=== PATIENT | male | born 1975 | race Caucasian/White ===

== ENCOUNTER 2017-11-21 12:36 | Emergency (ER) | payer MEDICARE, MEDICAID ==
[2013-10-15 01:55] VITALS: BMI 32.2
[~2017-11-21 12:36] MED LIST: GLUCOPHAGE1000 MG PO; ROXICODONE5 MG PO; VALIUM5 MG PO
[2017-11-21 13:07] LABS: BASOPHILS 0.8 % (0-2); EOSINOPHILS 3.6 % (0-7); HEMATOCRIT 46.7 % (42.0-54.0); HEMOGLOBIN 16.4 g/dL (13.5-17.5); IMMATURE GRANULOCYTES 0.3 % (0-5); MCH 29.4 pg (26.0-34.0); MCHC 35.1 g/dL (31.0-37.0); MCV 83.8 fL (80.0-100.0); MEAN PLATELET VOLUME 10.6 fL (7.4-10.4); MONOCYTES 9.7 % (2-11); NEUTROPHILS 57.6 % (40-80); PLATELET COUNT 245 10x3/uL (130-400); RBC 5.57 10x6/uL (4.20-6.10); WBC 11.5 10x3/uL (4.8-10.8)
[2017-11-21 13:08] LABS: APPEARANCE CLEAR (CLEAR); BILIRUBIN NEGATIVE (NEGATIVE); COLOR YELLOW (YELLOW); GLUCOSE NEGATIVE (NEGATIVE); KETONE NEGATIVE (NEGATIVE); NITRITE NEGATIVE (NEGATIVE); PROTEIN NEGATIVE (NEGATIVE); SPECIFIC GRAVITY 1.005 (1.005-1.020); UROBILINOGEN NORMAL (NORMAL)
[2017-11-21 13:19] LABS: ALBUMIN 3.9 g/dL (3.4-5.0); ALKALINE PHOSPHATASE 75 U/L (46-116); ALT (SGPT) 60 U/L (10-68); AMYLASE - SERUM 60 U/L (25-115); BILIRUBIN - TOTAL 0.46 mg/dL (0.2-1.3); CALC OSMOLALITY 282 mosm/kg (275-300); CALCIUM 9.2 mg/dL (8.5-10.1); CARBON DIOXIDE 25.8 mmol/L (21.0-32.0); CHLORIDE - SERUM 105 mmol/L (98-107); CREATININE - SERUM 0.9 mg/dL (0.6-1.3); GLUCOSE 130 mg/dL (74-106); LIPASE 275 U/L (73-393); POTASSIUM - SERUM 4.3 mmol/L (3.5-5.1); PROTEIN - SERUM 7.9 g/dL (6.4-8.2); SODIUM 141 mmol/L (136-145); UREA NITROGEN 12 mg/dL (7-18); eGFR NON AFRICAN AMERICAN > 90 mL/min (90-120)
== END 2017-11-21 15:30 | disposition home or self-care (01) ==
LOC: D.ER 12:36
PROVIDERS: Family Medicine
DX: R10.13 Epigastric pain (principal); K21.9 Gastro-esophageal reflux disease without esophagitis; E11.9 Type 2 diabetes mellitus without complications

== ENCOUNTER → 2018-07-27 10:15 | Outpatient (CLI) | payer MEDICARE, MEDICAID ==
[2013-10-15 01:55] VITALS: BMI 32.2
== END | disposition home or self-care (01) ==
LOC: D.MRI 10:15
DX: M54.5 Low back pain (principal); M54.17 Radiculopathy, lumbosacral region; M47.897 Other spondylosis, lumbosacral region; M96.1 Postlaminectomy syndrome, not elsewhere classified; Z79.899 Other long term (current) drug therapy; Z79.891 Long term (current) use of opiate analgesic

== ENCOUNTER 2018-12-02 15:04 | Emergency (ER) | payer MEDICARE, MEDICAID ==
[~2018-12-02] VITALS: Ht 175.3 cm; Wt 100.0 kg
[2018-12-02 15:12] VITALS: Ht 175.3 cm; Wt 100.0 kg
[2018-12-02] MEDS ORDERED: KLONOPIN1 MG PO (15:16)
[2018-12-02] MEDS ORDERED: HYDROCODON-ACE1 EA10 PO (15:16)
[2018-12-02] MEDS ORDERED: LIPITOR40 MG PO (15:17)
[2018-12-02 15:46] LABS: APPEARANCE CLEAR (CLEAR); BILIRUBIN NEGATIVE (NEGATIVE); COLOR YELLOW (YELLOW); GLUCOSE NEGATIVE (NEGATIVE); KETONE NEGATIVE (NEGATIVE); NITRITE NEGATIVE (NEGATIVE); PROTEIN TRACE mg/dL (NEGATIVE); SPECIFIC GRAVITY 1.015 (1.005-1.020); UROBILINOGEN NORMAL (NORMAL)
[2018-12-02 15:53] LABS: BASOPHILS 0.5 % (0-2); HEMOGLOBIN 16.5 g/dL (13.5-17.5); IMMATURE GRANULOCYTES 0.3 % (0-5); LYMPHOCYTES 20.4 % (15-50); MCH 30.2 pg (26.0-34.0); MCHC 35.9 g/dL (31.0-37.0); MCV 84.1 fL (80.0-100.0); MEAN PLATELET VOLUME 10.8 fL (7.4-10.4); MONOCYTES 9.2 % (2-11); NEUTROPHILS 68.6 % (40-80); PLATELET COUNT 244 10x3/uL (130-400); RBC 5.47 10x6/uL (4.20-6.10); RDW 13.1 % (11.5-14.5); WBC 15.6 10x3/uL (4.8-10.8)
[2018-12-02 16:03] LABS: ALBUMIN 3.8 g/dL (3.4-5.0); ALKALINE PHOSPHATASE 76 U/L (46-116); ALT (SGPT) 76 U/L (10-68); AMYLASE - SERUM 40 U/L (25-115); BILIRUBIN - TOTAL 0.34 mg/dL (0.2-1.3); CALC OSMOLALITY 274 mosm/kg (275-300); CALCIUM 9.1 mg/dL (8.5-10.1); CARBON DIOXIDE 23.1 mmol/L (21.0-32.0); CHLORIDE - SERUM 102 mmol/L (98-107); GLUCOSE 115 mg/dL (74-106); LIPASE 228 U/L (73-393); POTASSIUM - SERUM 3.8 mmol/L (3.5-5.1); SODIUM 137 mmol/L (136-145); UREA NITROGEN 12 mg/dL (7-18); eGFR NON AFRICAN AMERICAN 87 mL/min (90-120)
[2018-12-02 17:00] VITALS: BP 128/79
== END 2018-12-02 17:30 | disposition left against medical advice (07) ==
LOC: D.ER 15:04
PROVIDERS: Emergency Medicine
DX: R10.13 Epigastric pain (principal); E11.9 Type 2 diabetes mellitus without complications; K21.9 Gastro-esophageal reflux disease without esophagitis

== ENCOUNTER → 2019-04-18 08:11 | Outpatient (CLI) | payer MEDICARE, MEDICAID ==
[2018-12-02 15:12] VITALS: BMI 32.5
[~2019-04-18 08:11] MED LIST changes: +HYDROCODON-ACE1 EA10 PO; +KLONOPIN1 MG PO; +LIPITOR40 MG PO
== END | disposition home or self-care (01) ==
LOC: D.CT 08:11
PROVIDERS: ATTEND Orthopaedic Surgery
DX: M25.551 Pain in right hip (principal)

== ENCOUNTER 2020-01-22 00:17 | Observation (INO) | payer MEDICARE, MEDICAID ==
[~2020-01-22] VITALS: Ht 175.3 cm; Wt 98.2 kg
[2020-01-22 01:13] LABS: APTT 25.8 SECONDS (22.8-39.4); CALC OSMOLALITY 275 mosm/kg (275-300); CALCIUM 8.9 mg/dL (8.5-10.1); CHLORIDE - SERUM 100 mmol/L (98-107); INR 0.93 (0.85-1.17); POTASSIUM - SERUM 3.3 mmol/L (3.5-5.1); PROTIME 12.4 SECONDS (11.6-15.0); SODIUM 135 mmol/L (136-145); UREA NITROGEN 11 mg/dL (7-18); eGFR NON AFRICAN AMERICAN 87 mL/min (90-120)
[2020-01-22 01:15] LABS: GLUCOSE 223 mg/dL (74-106)
[2020-01-22 01:22] LABS: BASOPHILS 0.4 % (0-2); EOSINOPHILS 1.4 % (0-7); HEMATOCRIT 46.4 % (42.0-54.0); HEMOGLOBIN 16.1 g/dL (13.5-17.5); IMMATURE GRANULOCYTES 0.6 % (0-5); LYMPHOCYTES 23.6 % (15-50); MCH 29.8 pg (26.0-34.0); MCHC 34.7 g/dL (31.0-37.0); MCV 85.8 fL (80.0-100.0); MEAN PLATELET VOLUME 10.6 fL (7.4-10.4); MONOCYTES 7.3 % (2-11); NEUTROPHILS 66.7 % (40-80); PLATELET COUNT 226 10x3/uL (130-400); RBC 5.41 10x6/uL (4.20-6.10); RDW 12.9 % (11.5-14.5); WBC 16.2 10x3/uL (4.8-10.8)
[2020-01-22 01:28] LABS: ALBUMIN 3.5 g/dL (3.4-5.0); ALKALINE PHOSPHATASE 63 U/L (30-120); ALT (SGPT) 75 U/L (10-68); BILIRUBIN - TOTAL 0.24 mg/dL (0.2-1.3); CKMB 0.2 U/L (0.0-3.6); CREATINE KINASE 33 UL (21-232); MAGNESIUM - SERUM 1.7 mg/dL (1.8-2.4); PROTEIN - SERUM 7.1 g/dL (6.4-8.2); TROPONIN-I < 0.017 ng/mL (0.000-0.060)
--- NOTE | 2020-01-22 01:51 | NUR ---
PT STATES CP 0/10 AFTER FIRST SL NITRO
[2020-01-22 01:58] VITALS: BP 132/79
[2020-01-22] MEDS ORDERED: JANUVIA50 MG PO (02:59)
[2020-01-22] MEDS ORDERED: VITAMIN D1000 UNIT PO (03:00)
[2020-01-22] MEDS ORDERED: OMEPRAZOLE40 MG PO (03:00)
[2020-01-22] MEDS ORDERED: NAPROSYN500 MG PO (03:01)
[2020-01-22 04:16] VITALS: Ht 175.3 cm; Wt 98.2 kg
[2020-01-22 08:19] LABS: CKMB 0.2 U/L (0.0-3.6); CREATINE KINASE 32 UL (21-232); MAGNESIUM - SERUM 1.9 mg/dL (1.8-2.4); TROPONIN-I < 0.017 ng/mL (0.000-0.060)
[2020-01-22 09:25] VITALS: BP 105/54
[2020-01-22 09:25] LABS: BASOPHILS 0.5 % (0-2); EOSINOPHILS 2.1 % (0-7); HEMATOCRIT 46.3 % (42.0-54.0); IMMATURE GRANULOCYTES 0.8 % (0-5); MCH 29.7 pg (26.0-34.0); MCHC 34.6 g/dL (31.0-37.0); MCV 86.1 fL (80.0-100.0); MEAN PLATELET VOLUME 10.8 fL (7.4-10.4); MONOCYTES 8.1 % (2-11); NEUTROPHILS 57.5 % (40-80); PLATELET COUNT 245 10x3/uL (130-400); RBC 5.38 10x6/uL (4.20-6.10); RDW 12.9 % (11.5-14.5)
[2020-01-22 09:30] LABS: ALT (SGPT) 81 U/L (10-68); CALC OSMOLALITY 281 mosm/kg (275-300); CALCIUM 8.8 mg/dL (8.5-10.1); CHLORIDE - SERUM 104 mmol/L (98-107); CHOL - HDL RATIO 7.9 ratio (2.3-4.9); CHOLESTEROL, TOTAL 213 mg/dL (0-200); CREATININE - SERUM 0.8 mg/dL (0.6-1.3); HDL CHOLESTEROL 27 mg/dL (32-96); LDL CHOLESTEROL 120 mg/dL (0-100); LDL-HDL RATIO 4.4 ratio (1.5-3.5); POTASSIUM - SERUM 3.6 mmol/L (3.5-5.1); SODIUM 139 mmol/L (136-145); TRIGLYCERIDE 332 mg/dL (30-200); UREA NITROGEN 12 mg/dL (7-18); eGFR NON AFRICAN AMERICAN > 90 mL/min (90-120)
[2020-01-22 09:31] LABS: GLUCOSE 167 mg/dL (74-106)
--- NOTE | 2020-01-22 11:39 | NUR ---
REFUSES HC. DR. CRONIN AND VALORIE SHELTON NOTIFIED.
[2020-01-22 13:15] VITALS: BP 119/74
--- NOTE | 2020-01-22 14:26 | NUR ---
IV AND TELEMETRY DCD. LEFT WITH , REFUSING TO WAIT ON DC PAPERWORK.
--- NOTE | 2020-01-23 08:17 | CN ---
PATIENT NAME:JENIFER BOB JR MEDICAL RECORD: [id number] : 77 LOCATION:D. D.2120 ADMIT DATE: 01/22/20 ACCOUNT: [id number] CONSULTING PHYSICIAN: YVONNE NASH MD REFERRING PHYSICIAN: MAURICIO STEELE MD DATE OF CONSULTATION: 01/22/2020 HISTORY OF PRESENT ILLNESS: A 44-year-old gentleman with no known history of coronary artery disease, he has a history of diabetes mellitus, hypertension, hyperlipidemia, ongoing tobacco use, admitted with chest pain. He has a history of reflux, but this is somewhat different from his typical reflux, did not respond to a GI cocktail, relieved with two nitroglycerin, noticed decreased effort tolerance over the past 4-6 weeks. Last night was first rest symptoms. We are asked to see him concerning his cardiovascular status. PAST MEDICAL HISTORY: Includes; 1. History of hypertension. 2. Hyperlipidemia. 3. Diabetes mellitus. 4. Anxiety. ALLERGIES: INCLUDE CONTRAST, INTOLERANT TO STATINS WITH MYALGIAS. MEDICATIONS: Typically include Cl[place] 10/325 one p.o. every 4 hours p.r.n., Naprosyn 500 b.i.d., clonazepam 1 mg p.o. b.i.d., metformin 1 gram b.i.d., Januvia 50 mg p.o. daily, vitamin D 1000 units daily. SOCIAL HISTORY: He smokes about a pack a day, nondrinker, no illicit drug use. Rare exercise secondary to back issues. REVIEW OF SYSTEMS: The patient reports easy bruising but reports no swollen glands. The patient reports no fever, no night sweats, no significant weight gain, no significant weight loss. No significant exercise tolerance. The patient reports no dry eyes, no irritation, no vision change. Patient reports no difficulty hearing and no ear pain. Patient reports no frequent nose bleeds or nose and sinus problems. Patient reports on arm pain on exertion. No shortness of breath while lying down. No history of heart murmur. Patient reports no cough, no wheezing or coughing up blood. Patient reports no abdominal pain, no vomiting. Normal appetite. No diarrhea and not vomiting blood. No nausea and no constipation. Patient reports no incontinence. No difficulty urinating. No hematuria. No increased frequency. Patient reports no muscle aches. No weakness, no arthralgias, no back pain. No swelling of the extremities. Patient reports no abnormal mole, no jaundice, no rashes. Reports no loss of consciousness. No weakness and no numbness. No seizures, dizziness, or headaches. The patient reports no depression, no sleep disturbance, feeling safe in a relationship and no alcohol abuse. Patient reports on fatigue. Reports no runny nose or sinus pressure. No itching, no hives, and no frequent sneezing. PHYSICAL EXAMINATION: GENERAL: Well-developed, in no acute distress. VITAL SIGNS: Blood pressure 123/20, pulse 87. HEENT: Normocephalic, atraumatic. NECK: No JVD or bruit. HEART: Regular. A II/ systolic ejection murmur. CONSULT REPORT [id number] JENIFER BOB JR LUNGS: Good air excursion. ABDOMEN: Soft, nontender. EXTREMITIES: Pulses 2+. No edema. DIAGNOSTIC DATA: EKG shows minor nonspecific ST-T changes inferolaterally probable voltage for LVH. IMPRESSION: Acute coronary syndrome, rapidly progressing symptomology, multiple risk factors, angiography, intervention based on above. TRANSINT:[id number] Voice Confirmation ID: [id number] DOCUMENT ID: [id number] YVONNE NASH MD at 0817 CC: [id number] DICTATION DATE: 01/22/20837 SLUNK SKINNER: 01/22/20 1612 DIS IN 01/22/20 [id number] [place] [address]
--- NOTE | 2020-01-23 08:17 | EC ---
PATIENT:JENIEFR BOB JR DATE OF SERVICE: 01/22/20 SEX: M MEDICAL RECORD: [id number] DATE OF : [birth year] LOCATION:D.M2 D.212 AGE OF PATIENT: 44 ADMISSION DATE: 01/22/20 REFERRING PHYSICIAN: INTERPRETING PHYSICIAN: YVONNE NASH MD ECHOCARDIOGRAM REPORT ECHO CHARGES 4 ECHO COMPLETE Date: 01/22/20 CLINICAL DIAGNOSIS: CP ECHOCARDIOGRAPHIC MEASUREMENTS (adult normal given) AC root (d.<3.7cm) 2.6 cm LV Septum d (<1.2 cm> 0.6 cm Valve Excursion 1.9 cm LV Septum (systole) 0.7 cm Left Atria (s.<4.0cm> 4.1 cm LVPW d(<1.2cm) 0.7 cm RV (d.<2.3cm) 2.9 cm LVPW (sytole) 1.0 cm LV diastole(<5.6CM) 6.1 cm MV E-F(>70mm/sec) cm LV systole 5.2 cm LVOT Diameter 1.6 cm MV exc.(>10mm) cm Est.ejection fraction (50-75%) % DOPPLER: LVIT cm/sec A 46 cm/sec E 74 cm/sec LA cm/sec RVSP 15.3 mmHg LVOT 100 cm/sec AOP1/2T m/s Asc. Ao 130 cm/sec RVOT 89 cm/sec RA cm/sec PA 97 cm/sec AV Gradient Peak 6.8 mmHg AV Mean 3.7 mmHg AV Area 1.5 cm MV Gradient Peak 2.4 mmHg MV Mean 1.3 mmHg MV Area cm COMMENTS: Heating And Cooling Systems Engineer: 5 [facility] Food Production Associate: 3 Dr. Bridges TAPE# PACS Pericardial Effusion Y DATE OF SERVICE: Adequate 2D, color flow imaging, spectral Doppler, and M-Mode. No LVH. LV internal dimension is normal. Wall motion is normal. EF is greater than or equal to 55%. Aortic valve is tricuspid. No evidence of stenosis by Doppler interrogation. Left atrium is upper limits of normal and mildly dilated at 4.1 cm. Mitral valve shows no prolapse. Trace MR. Right-sided chambers are grossly normal. Trace TR. ECHOCARDIOGRAM REPORT [id number] JENIFER BOB TRANSINT:[id number] Voice Confirmation ID: [id number] DOCUMENT ID: [id number] YVONNE NASH MD at 0817 CC: [id number] DICTATION DATE: 01/22/20 1225 BOILER TUBE REAMER: 01/22/20 1411 DIS IN 01/22/20 [address] [id number] [place] [id number]
== END 2020-01-22 14:27 | disposition home or self-care (01) ==
LOC: D.ER 00:17 → OBSVTIME 01:51 → D.M2 01:51 → D.SDCHOLD 10:07 → D.M2 10:09
PROVIDERS: Family Medicine; Internal Medicine Interventional Cardiology; ADMIT Emergency Medicine; ATTEND Emergency Medicine
DX: I20.0 Unstable angina (principal); E11.65 Type 2 diabetes mellitus with hyperglycemia; F17.203 Nicotine dependence unspecified, with withdrawal; K21.9 Gastro-esophageal reflux disease without esophagitis; E87.1 Hypo-osmolality and hyponatremia; E87.6 Hypokalemia; G89.29 Other chronic pain; R42 Dizziness and giddiness; R55 Syncope and collapse; I24.9 Acute ischemic heart disease, unspecified; I10 Essential (primary) hypertension; E78.5 Hyperlipidemia, unspecified

== ENCOUNTER 2020-02-05 21:19 | Emergency (ER) | payer MEDICARE ==
[~2020-02-05] VITALS: Ht 175.3 cm; Wt 102.3 kg
[~2020-02-05 21:19] MED LIST changes: +JANUVIA50 MG PO; +NAPROSYN500 MG PO; +OMEPRAZOLE40 MG PO; +VITAMIN D1000 UNIT PO
[2020-02-05 21:30] VITALS: Ht 175.3 cm; Wt 102.3 kg
[2020-02-05] MEDS ORDERED: ATIVAN0.5 MG PO (21:34)
[2020-02-05] MEDS ORDERED: BAYER CHEWABLE81 MG PO (21:35)
[2020-02-05 22:03] LABS: BASOPHILS 0.4 % (0-2); HEMATOCRIT 46.5 % (42.0-54.0); HEMOGLOBIN 15.9 g/dL (13.5-17.5); IMMATURE GRANULOCYTES 0.3 % (0-5); LYMPHOCYTES 20.3 % (15-50); MCH 30.3 pg (26.0-34.0); MCHC 34.2 g/dL (31.0-37.0); MCV 88.6 fL (80.0-100.0); MEAN PLATELET VOLUME 10.5 fL (7.4-10.4); MONOCYTES 8.2 % (2-11); NEUTROPHILS 68.8 % (40-80); PLATELET COUNT 241 10x3/uL (130-400); RBC 5.25 10x6/uL (4.20-6.10); RDW 12.6 % (11.5-14.5); WBC 14.6 10x3/uL (4.8-10.8)
[2020-02-05 22:14] LABS: APTT 28.5 SECONDS (22.8-39.4); INR 0.94 (0.85-1.17); PROTIME 12.5 SECONDS (11.6-15.0)
[2020-02-05 22:19] LABS: CALC OSMOLALITY 274 mosm/kg (275-300); CALCIUM 8.3 mg/dL (8.5-10.1); CARBON DIOXIDE 25.5 mmol/L (21.0-32.0); CHLORIDE - SERUM 104 mmol/L (98-107); CREATININE - SERUM 1.4 mg/dL (0.6-1.3); GLUCOSE 159 mg/dL (74-106); POTASSIUM - SERUM 4.3 mmol/L (3.5-5.1); SODIUM 137 mmol/L (136-145); UREA NITROGEN 7 mg/dL (7-18); eGFR NON AFRICAN AMERICAN 59 mL/min (90-120)
[2020-02-05 22:36] LABS: ALBUMIN 3.7 g/dL (3.4-5.0); ALKALINE PHOSPHATASE 66 U/L (30-120); ALT (SGPT) 85 U/L (10-68); BILIRUBIN - TOTAL 0.35 mg/dL (0.2-1.3); CKMB 0.3 U/L (0.0-3.6); CREATINE KINASE 49 UL (21-232); MAGNESIUM - SERUM 1.8 mg/dL (1.8-2.4); PROTEIN - SERUM 7.3 g/dL (6.4-8.2); THYROID STIMULATING HORMONE 2.08 uIU/mL (0.36-3.74)
[2020-02-05 22:38] LABS: TROPONIN-I < 0.017 ng/mL (0.000-0.060)
[2020-02-05 23:52] LABS: UDS - AMPHET NEGATIVE QUAL (NEGATIVE); UDS - BARB NEGATIVE QUAL (NEGATIVE); UDS - BENZO NEGATIVE QUAL (NEGATIVE); UDS - COCAINE NEGATIVE QUAL (NEGATIVE); UDS - OPIATE POSITIVE QUAL (NEGATIVE); UDS - PCP NEGATIVE QUAL (NEGATIVE); UDS - THC NEGATIVE QUAL (NEGATIVE)
[2020-02-05 23:56] LABS: BILIRUBIN NEGATIVE (NEGATIVE); GLUCOSE NEGATIVE (NEGATIVE); KETONE NEGATIVE (NEGATIVE); NITRITE NEGATIVE (NEGATIVE); UROBILINOGEN NORMAL (NORMAL)
[2020-02-05 23:58] LABS: BACTERIA NONE SEEN /hpf (NEGATIVE); EPITHELIAL CELLS NSEEN /hpf (0-5); RED CELLS - URINE NONE SEEN /hpf (0-5); WHITE CELLS - URINE 0-5 /hpf (NEGATIVE)
[2020-02-06 01:05] VITALS: BP 129/70
[2020-02-07] MEDS ORDERED: NICODERM CQ1 EAC3 TRANSDERM (15:25)
[2020-02-07] MEDS ORDERED: SEROQUEL25 MG PO (15:25)
== END 2020-02-06 01:05 | disposition home or self-care (01) ==
LOC: D.ER 21:19
PROVIDERS: Family Medicine
DX: R41.0 Disorientation, unspecified (principal); N17.9 Acute kidney failure, unspecified; F41.9 Anxiety disorder, unspecified; D72.829 Elevated white blood cell count, unspecified; E11.9 Type 2 diabetes mellitus without complications; K21.9 Gastro-esophageal reflux disease without esophagitis; Z79.84 Long term (current) use of oral hypoglycemic drugs; R42 Dizziness and giddiness

== ENCOUNTER 2020-02-06 14:49 | Observation (INO) | payer MEDICARE ==
[~2020-02-06] VITALS: Ht 175.3 cm; Wt 95.9 kg
[~2020-02-06 14:49] MED LIST changes: +ATIVAN0.5 MG PO; +BAYER CHEWABLE81 MG PO
[2020-02-06 16:40] LABS: BASOPHILS 0.7 % (0-2); EOSINOPHILS 1.3 % (0-7); HEMATOCRIT 47.6 % (42.0-54.0); HEMOGLOBIN 16.3 g/dL (13.5-17.5); IMMATURE GRANULOCYTES 0.4 % (0-5); LYMPHOCYTES 23.8 % (15-50); MCH 29.8 pg (26.0-34.0); MCHC 34.2 g/dL (31.0-37.0); MEAN PLATELET VOLUME 10.2 fL (7.4-10.4); MONOCYTES 8.5 % (2-11); NEUTROPHILS 65.3 % (40-80); PLATELET COUNT 252 10x3/uL (130-400); RBC 5.47 10x6/uL (4.20-6.10); RDW 12.4 % (11.5-14.5)
[2020-02-06 16:41] LABS: WBC 10.3 10x3/uL (4.8-10.8)
[2020-02-06 16:57] LABS: CALC OSMOLALITY 273 mosm/kg (275-300); CALCIUM 9.7 mg/dL (8.5-10.1); CARBON DIOXIDE 26.3 mmol/L (21.0-32.0); CHLORIDE - SERUM 105 mmol/L (98-107); GLUCOSE 134 mg/dL (74-106); POTASSIUM - SERUM 4.3 mmol/L (3.5-5.1); SODIUM 137 mmol/L (136-145); UREA NITROGEN 6 mg/dL (7-18); eGFR NON AFRICAN AMERICAN 87 mL/min (90-120)
[2020-02-06 17:03] LABS: APTT 28.6 SECONDS (22.8-39.4); INR 0.96 (0.85-1.17); PROTIME 12.8 SECONDS (11.6-15.0)
[2020-02-06 17:13] LABS: ALBUMIN 3.9 g/dL (3.4-5.0); ALKALINE PHOSPHATASE 73 U/L (30-120); ALT (SGPT) 82 U/L (10-68); BILIRUBIN - TOTAL 0.43 mg/dL (0.2-1.3); C-REACTIVE PROTEIN 1.6 mg/dL (0.0-0.9); CKMB 0.3 U/L (0.0-3.6); CREATINE KINASE 43 UL (21-232); PROTEIN - SERUM 7.5 g/dL (6.4-8.2); TROPONIN-I < 0.017 ng/mL (0.000-0.060)
[2020-02-06 19:47] VITALS: BP 119/74; Ht 175.3 cm; Wt 95.9 kg
[2020-02-06 20:00] VITALS: BP 119/74
[2020-02-06 23:18] LABS: CHOL - HDL RATIO 6.1 ratio (2.3-4.9); CHOLESTEROL, TOTAL 171 mg/dL (0-200); CKMB 0.6 U/L (0.0-3.6); CREATINE KINASE 40 UL (21-232); HDL CHOLESTEROL 28 mg/dL (32-96); LDL CHOLESTEROL 80 mg/dL (0-100); LDL-HDL RATIO 2.9 ratio (1.5-3.5); TRIGLYCERIDE 319 mg/dL (30-200)
[2020-02-06 23:20] LABS: TROPONIN-I < 0.017 ng/mL (0.000-0.060)
[2020-02-07] VITALS: BP 111/60
[2020-02-07 04:00] VITALS: BP 111/66
--- NOTE | 2020-02-07 04:16 | NUR ---
ASSESSED AT THE BEGINNING OF THE SHIFT WHEN PT CAME FROM THE ER. HE IS ALERT AND ORIENTED, ABLE TO VERBALZIE NEEDS. BROUGHT THEM BOTH DINNER AND AT MIDNIGHT HE WAS PLACAE ON NPO ORDERED. DURING THE NIGHT AT ABOUT 0200 HE CALLED FOR PAIN MEDS AND WANTED A GI COCKTAIL. HE WAS C/O CHEST PAIN AND NUMBNESS TO HIS ARM AND JAW. MD WAS CALLED AND ORDERS RECEIVED FOR MORPHINE AND THE GI COCKTAIL. THEY HAVE BOTH BEEN TAKEN AND HE WILL LET US KNOW IF THE GI COCKTAIL HELPS BETTER THAN THE MORPHINE. HE HAD AN ORDER FOR 1-4 OF THE MORPHINE. 2 MG WAS GIVEN.
[2020-02-07 05:17] LABS: BASOPHILS 0.6 % (0-2); HEMATOCRIT 44.9 % (42.0-54.0); HEMOGLOBIN 14.8 g/dL (13.5-17.5); IMMATURE GRANULOCYTES 0.3 % (0-5); LYMPHOCYTES 38.1 % (15-50); MCH 29.1 pg (26.0-34.0); MCV 88.2 fL (80.0-100.0); MEAN PLATELET VOLUME 10.9 fL (7.4-10.4); MONOCYTES 9.9 % (2-11); NEUTROPHILS 48.1 % (40-80); PLATELET COUNT 267 10x3/uL (130-400); RBC 5.09 10x6/uL (4.20-6.10); RDW 12.6 % (11.5-14.5); WBC 10.2 10x3/uL (4.8-10.8)
[2020-02-07 05:29] LABS: ALBUMIN 3.5 g/dL (3.4-5.0); ALKALINE PHOSPHATASE 65 U/L (30-120); ALT (SGPT) 72 U/L (10-68); BILIRUBIN - TOTAL 0.28 mg/dL (0.2-1.3); CALCIUM 8.6 mg/dL (8.5-10.1); CARBON DIOXIDE 26.3 mmol/L (21.0-32.0); CHLORIDE - SERUM 104 mmol/L (98-107); CREATINE KINASE 41 UL (21-232); GLUCOSE 146 mg/dL (74-106); POTASSIUM - SERUM 3.7 mmol/L (3.5-5.1); SODIUM 137 mmol/L (136-145); eGFR NON AFRICAN AMERICAN 87 mL/min (90-120)
[2020-02-07 05:33] LABS: CALC OSMOLALITY 275 mosm/kg (275-300); TROPONIN-I < 0.017 ng/mL (0.000-0.060); UREA NITROGEN 11 mg/dL (7-18)
--- NOTE | 2020-02-07 06:50 | NUR ---
ALERT AND ORIENTED. NO C/O PAIN. NO S/S OF ACUTE DISTRESS NOTED. ON TELEMETRY, 87 SR. IV TO RIGHT AC, SL. SITE PATENT WITHOUT REDNESS OR SWELLING. SPOUSE AT BEDSIDE. DENIES ANY NEEDS AT THIS TIME. CALL LIGHT IN REACH. WILL CONTINUE TO MONITOR.
--- NOTE | 2020-02-07 07:59 | NUR ---
LYING ON LEFT SIDE. PATIENT IS WITHOUT DISTRESS.
[2020-02-07 08:33] VITALS: BP 116/68
[2020-02-07 11:22] LABS: CKMB 0.5 U/L (0.0-3.6); CREATINE KINASE 43 UL (21-232); TROPONIN-I < 0.017 ng/mL (0.000-0.060)
[2020-02-07 12:22] VITALS: BP 122/69
[2020-02-07] MEDS ORDERED: SEROQUEL25 MG PO (15:25)
[2020-02-07] MEDS ORDERED: NICODERM CQ1 EAC3 TRANSDERM (15:25)
--- NOTE | 2020-02-07 16:55 | NUR ---
DISCHARGED PATIENT HOME WITH VIA WHEELCHAIR. DISCONTINUED IV, CATHETER TIP INTACT. WENT OVER DISCHARGE INSTRUCTIONS WITH PATIENT AND , VERBALIZED UNDERSTANDING. DENIES ANYTHING FURTHER AT THIS TIME.
== END 2020-02-07 16:56 | disposition home or self-care (01) ==
LOC: D.ER 14:49 → D.MS 17:55 → OBSVTIME 18:21 → D.MS 02-07 16:56
PROVIDERS: Emergency Medicine; ADMIT Family Medicine; ATTEND Family Medicine
DX: I20.0 Unstable angina (principal); E11.65 Type 2 diabetes mellitus with hyperglycemia; R20.2 Paresthesia of skin; E78.5 Hyperlipidemia, unspecified; K21.9 Gastro-esophageal reflux disease without esophagitis; F17.203 Nicotine dependence unspecified, with withdrawal; F41.8 Other specified anxiety disorders; G89.29 Other chronic pain

== ENCOUNTER 2020-03-14 03:35 | Emergency (ER) | payer MEDICARE ==
[~2020-03-14] VITALS: Ht 175.3 cm; Wt 99.8 kg
[~2020-03-14 03:35] MED LIST changes: +NICODERM CQ1 EAC3 TRANSDERM; +SEROQUEL25 MG PO
[2020-03-14 03:39] VITALS: BP 151/79; Ht 175.3 cm; Wt 99.8 kg
[2020-03-14 04:10] LABS: BASOPHILS 0.6 % (0-2); EOSINOPHILS 3.3 % (0-7); HEMATOCRIT 41.8 % (42.0-54.0); HEMOGLOBIN 14.6 g/dL (13.5-17.5); IMMATURE GRANULOCYTES 0.3 % (0-5); LYMPHOCYTES 40.6 % (15-50); MCH 29.9 pg (26.0-34.0); MCHC 34.9 g/dL (31.0-37.0); MCV 85.7 fL (80.0-100.0); MEAN PLATELET VOLUME 9.8 fL (7.4-10.4); MONOCYTES 8.3 % (2-11); NEUTROPHILS 46.9 % (40-80); PLATELET COUNT 232 10x3/uL (130-400); RBC 4.88 10x6/uL (4.20-6.10); RDW 12.6 % (11.5-14.5); WBC 10.9 10x3/uL (4.8-10.8)
[2020-03-14 04:17] LABS: CALC OSMOLALITY 276 mosm/kg (275-300); CALCIUM 8.9 mg/dL (8.5-10.1); CARBON DIOXIDE 25.2 mmol/L (21.0-32.0); CHLORIDE - SERUM 104 mmol/L (98-107); CREATININE - SERUM 1.3 mg/dL (0.6-1.3); GLUCOSE 162 mg/dL (74-106); POTASSIUM - SERUM 3.6 mmol/L (3.5-5.1); SODIUM 137 mmol/L (136-145); UREA NITROGEN 9 mg/dL (7-18); eGFR NON AFRICAN AMERICAN 64 mL/min (90-120)
[2020-03-14 04:32] LABS: ALBUMIN 3.6 g/dL (3.4-5.0); ALKALINE PHOSPHATASE 63 U/L (30-120); ALT (SGPT) 64 U/L (10-68); BILIRUBIN - TOTAL 0.53 mg/dL (0.2-1.3); C-REACTIVE PROTEIN 1.2 mg/dL (0.0-0.9); CREATINE KINASE 45 UL (21-232); THYROID STIMULATING HORMONE 5.32 uIU/mL (0.36-3.74); TROPONIN-I < 0.017 ng/mL (0.000-0.060)
== END 2020-03-14 05:01 | disposition home or self-care (01) ==
LOC: D.ER 03:35
PROVIDERS: Family Medicine
DX: M26.629 Arthralgia of temporomandibular joint, unspecified side (principal); E11.9 Type 2 diabetes mellitus without complications; I10 Essential (primary) hypertension; Z79.84 Long term (current) use of oral hypoglycemic drugs; M54.2 Cervicalgia